=== PATIENT | male | born 1955 | race Caucasian/White ===

== ENCOUNTER 2020-11-02 12:53 | Emergency (ER) | payer BC ==
[~2020-11-02] VITALS: Ht 170.2 cm; Wt 100.0 kg
[2020-11-02 13:19] VITALS: BP 148/89
[2020-11-02] MEDS ORDERED: DIPH,PERTUSS(ACELL),TET VAC/PF 0.5 ML SYRINGE. VAX IM ONE (14:00)
--- NOTE | 2020-11-02 14:20 | RAD ---
3 views of the left hand without comparison for table saw versus digits 2, 3, and 4. FINDINGS: There is no fracture, dislocation, or acute osseous abnormality identified. Joints are pierre sly unremarkable. Soft tissue defect is seen at the distal tip of the third digit. No radiopaque fore ign bodies. IMPRESSION: 1. No acute osseous abnormality. Soft tissue injury to the third digit with no radiopaque foreign bod ies. Electronically signed by: Jerome Prado MD (11/02/2020 2:18 PM) [id number]
--- NOTE | 2020-11-02 15:40 | PHYS DOC ---
Past Medical History Past Medical History: No Pertinent History Past Surgical History: Hip Replacement Smoking Status: Former Smoker Alcohol Use: Rarely General Adult EDM: Chief Complaint: LACERATION/AVULSION HPI: HPI: Patient is a 65 year old male presents emergency department stating just prior to arrival he was cutting some plastic on his table saw when it kicked back and he cut his left hand fingertips on it. Patient states that his last tetanus shot was longer than 5 years ago. Patient states he does not really hurt all that bad at this time. Patient states he put direct pressure on his fingertips he came straight to the emergency department. Patient denies cutting any digits off. Patient denies any other physical complaints or physical concerns. Review of Systems: Review of Systems: 14 body systems of review of systems have been reviewed. See HPI for pertinent positives and negative responses, otherwise all other systems are negative, nonpertinent or noncontributory. Heart Score: Risk Factors: Risk Factors: DM, Current or recent (<one month) smoker, HTN, HLP, family history of CAD, obesity. Risk Scores: Score 0 - 3: 2.5% MACE over next 6 weeks - Discharge Home Score 4 - 6: 20.3% MACE over next 6 weeks - Admit for Clinical Observation Score 7 - 10: 72.7% MACE over next 6 weeks - Early Invasive Strategies Current Medications: Current Medications Medications (Trade) Dose Ordered Sig/Clarisa Start Time Stop Time Status Last Admin Dose Admin Diphtheria/ Tetanus/Acell Pertussis (ADACEL TDap SYRINGE) 0.5 ml ONCE ONCE 11/02/20 14:00 11/02/20 14:04 DC 11/02/20 14:35 0.5 ML Allergies: Allergies: Allergies Coded Allergies Type Severity Reaction Last Updated Verified No Known Drug Allergies 11/02/20 No Physical Exam: PE: Constitutional: Well developed, well nourished, no acute distress, non-toxic appearance. HENT: Normocephalic, atraumatic, bilateral external ears normal, oropharynx moist, no oral exudates, nose normal. Eyes: PERRLA, EOMI, conjunctiva normal, no discharge. Neck: Normal range of motion, no tenderness, supple, no stridor. Cardiovascular:Heart rate regular rhythm, no murmur Lungs & Thorax: Bilateral breath sounds clear to auscultation Abdomen: Bowel sounds normal, soft, no tenderness, no masses, no pulsatile masses. Skin: Warm, dry, no erythema, no rash. Left hand finger #2 distal phalanx abrasion avulsion measuring 2 mm x 5 mm, no bleeding, finger #3 avulsion of distal phalanx pad without nail involvement, no bony process noted, bleeding controlled, avulsion measures approximately 5 mm diameter, digit #4 abrasion avulsion measuring approximately 3 mm x 5 mm, no bleeding. Back: No tenderness, no CVA tenderness. Extremities: No tenderness, no cyanosis, no clubbing, ROM intact, no edema. Neurologic: Alert and oriented X 3, normal motor function, normal sensory function, no focal deficits noted. Psychologic: Affect normal, judgement normal, mood normal. Current Patient Data: Vital Signs: Vital Signs Date Time Temp Pulse Resp B/P (MAP) Pulse Ox O2 Delivery O2 Flow Rate FiO2 11/02/20 13:19 97.5 77 18 148/89 (108) 97 Room Air 97.5 EKG: EKG: [] Radiology/Procedures: Radiology/Procedures: SEX: M EXAM STATUS: REG ER ORD. PHYSICIAN: LUCIE GONZALEZ APRN REASON: TABLE SAW VS DIGIT 2,3, AND 4 DISTAL PHALANX PROCEDURE: HAND LEFT 3V 3 views of the left hand without comparison for table saw versus digits 2, 3, and 4. FINDINGS: There is no fracture, dislocation, or acute osseous abnormality identified. Joints are grossly unremarkable. Soft tissue defect is seen at the distal tip of the third digit. No radiopaque foreign bodies. IMPRESSION: 1. No acute osseous abnormality. Soft tissue injury to the third digit with no radiopaque foreign bodies. Electronically signed by: Jerome Frederick MD (11/02/2020 2:18 PM) [id number] DICTATED and SIGNED BY: JEROME FREDERICK MD DATE: 11/02/20 [id number] 0 Course & Med Decision Making: Course & Med Decision Making Pertinent Labs and Imaging studies reviewed. (See chart for details) 65-year-old male, vital signs reviewed, cut left hands digits 2 3 and 4 distal tip's with table saw while cutting plastic. His tetanus shot was brought up-to-date. X-ray imaging ruled out bony involvement, will treat at home with p.o. Keflex, avulsions cleansed and dressed by ED nursing staff. Patient gave verbal understanding of discharge home instructions, return to emergency department precautions and concerns, follow-up with primary care soon, had no further questions or concerns, discharged home without incident. Impression: #1 avulsion of fingertip left hand Dragon Disclaimer: Dragon Disclaimer: This electronic medical record was generated, in whole or in part, using a voice recognition dictation system. Departure Departure Impression: Primary Impression: Avulsion of skin of index finger Qualified Codes: S61.208A - Unspecified open wound of other finger without damage to nail, initial encounter Additional Impressions: Avulsion of skin of finger without complication Qualified Codes: S61.209A - Unspecified open wound of unspecified finger without damage to nail, initial encounter Avulsion of skin of finger Qualified Codes: S61.209A - Unspecified open wound of unspecified finger without damage to nail, initial encounter Disposition: 01 DC HOME SELF CARE/HOMELESS Condition: IMPROVED Referrals: [facility] TEAM FACILITATOR (PCP) Patient Instructions: Deep Skin Avulsion Additional Instructions: Take antibiotics as prescribed, follow-up with your primary care doctor soon for reevaluation of your skin wounds, return to emergency department for worsening symptoms or other concerns. EMERGENCY DEPARTMENT GENERAL DISCHARGE INSTRUCTIONS Thank you for coming to [facility] Emergency Department (ED) today and trusting us with you care. We trust that you had a positive experience in our Emergency Department. If you wish to speak to the department management, you may call the Director at [phone]. YOUR FOLLOW UP INSTRUCTIONS ARE FOLLOWS: 1. Do you have a private Doctor? If you do not have a private doctor, please ask for a resource list of physicians or clinics that may be able to assist you with follow up care. 2. The Emergency Physicain has interpreted your x-rays. The X-Ray specialist will also review them. If there is a change in the findings, you will be notified in 48 hours when at all possible. 3. A lab test or culture has been done, your results will be reviewed and you will be notified if you need a change in treatment. ADDITIONAL INSTRUCTIONS AND INFORMATION: 1. Your care today has been supervised by a physician who is specially trained in emergency care. Many problems require more than one evaluation for a complete diagnosis and treatment. We recommend that you schedule your follow up appointment as recommended to ensure complete treatment of you illness or injury. If you are unable to obtain follow up care and continue to have a problem, or if your condition worsens, we recommend that you return to the ED. 2. We are not able to safely determine your condition over the phone nor are we able to give sound medical advice over the phone. For these safety reasons, if you call for medical advice we will ask you to come to the ED for further evaluation. 3. If you have any questions regarding these discharge instructions please call the ED at [phone]. SAFETY INFORMATION: In the interest of safety, wellness, and injury prevention; we encourage you to wear your sealbelt, if you smoke; quite smoking, and we encourage family to use a protective helmet for bicycling and other sporting events that present an increased risk for head injury. IF YOUR SYMPTOMS WORSEN OR NEW SYMPTOMS DEVELOP, OR YOU HAVE CONCERNS ABOUT YOUR CONDITION; OR IF YOUR CONDITION WORSENS WHILE YOU ARE WAITING FOR YOUR FOLLOW UP APPOINTMENT; EITHER CONTACT YOUR PRIMARY CARE DOCTOR, THE PHYSICIAN WHOSE NAME AND NUMBER YOU WERE GIVEN, OR RETURN TO THE ED IMMEDIATELY. Scripts Hydrocodone Bit/Acetaminophen (HYDROCODONE-APAP 5-325 ) 1 Tab Tablet 1 TAB PO PRN Q6HRS PRN for PAIN, #12 TAB 0 Refills Prov: LUCIE GONZALEZ APRN 11/02/20 Cephalexin (CEPHALEXIN) 500 Mg Tablet 1 TAB PO BID for SKIN INJURY, #20 TAB 0 Refills Prov: LUCIE GONZALEZ APRN 11/02/20 LUCIE GONZALEZ APRN Nov 02, 2020 15:40
[2020-11-02] MEDS ORDERED: CEPH500T PO (15:53)
[2020-11-02] MEDS ORDERED: HYDR-2761 PO (15:57)
== END 2020-11-02 16:06 | disposition home or self-care (01) ==
LOC: ER 12:53
DX: S60.411A Abrasion of left index finger, initial encounter (principal); Z87.891 Personal history of nicotine dependence; Y28.8XXA Contact with other sharp object, undetermined intent, initial encounter; Y93.89 Activity, other specified; Y92.89 Other specified places as the place of occurrence of the external cause; Y99.8 Other external cause status
CPT/HCPCS: 73130; 90471; 90715; 99283